=== PATIENT | female | born 1970 | race Caucasian/White ===

== ENCOUNTER 2017-03-19 08:31 | Emergency (ER) | payer BC, SELFPAY ==
--- NOTE | 2017-03-19 09:08 | RAD ---
CHEST PA AND LATERAL: History: 46-year-old female with chest pain. FINDINGS: Heart size is normal. The lungs are clear. IMPRESSION: No acute intrathoracic disease. No pneumonia, edema, or pleural effusion or other acute process. POS: OFF
[2017-03-19 09:09] LABS: #Basophils 0.2 thou/uL (0.0-0.2); #Eosinphils 0.1 thou/uL (0.0-0.7); #Lymphocytes 1.9 thou/uL (1.20-3.40); #Monocytes 0.5 thou/uL (0.11-0.59); %Basophils 2.1 % (0.0-1.0); %Eosinophils 1.2 % (0.0-10.0); %Lymphocytes 24.6 % (21.0-51.0); %Monocytes 7.1 % (0.0-10.0); Hematocrit 43.6 % (36.0-47.0); Mean Platelet Volume 7.1 fL (7.4-10.4); Red Blood Cell (RBC) Count 4.98 mill/uL (4.20-5.40); White Blood Cell (WBC) Count 7.7 thou/uL (4.8-10.8)
[2017-03-19 09:19] LABS: ALT (SGPT) 35 U/L (8-55); AST (SGOT) 24 U/L (5-34); Alkaline Phosphatase 81 U/L (40-150); Anion Gap 14 mmol/L (10-20); BUN (Urea Nitrogen) 15 mg/dL (7.0-18.7); Bilirubin, Total 0.7 mg/dL (0.2-1.2); Calc. Creatinine Clearance 0 mL/min (70-130); Calcium 9.7 mg/dL (7.8-10.44); Carbon Dioxide 20 mmol/L (22-29); Chloride 107 mmol/L (98-107); Estimated GFR-MDRD 45; Globulin 3.3 g/dL (2.4-3.5); Protein, Total 7.4 g/dL (6.0-8.3)
[2017-03-19 09:21] LABS: Troponin I Less than 0.010 ng/mL (< 0.028)
[2017-03-19 09:24] LABS: Lipase 12 U/L (8-78)
[2017-03-19] MEDS ORDERED: Prochlorperazine 10 MG/2 ML VIAL ONE (09:28)
[2017-03-19] MEDS ORDERED: Ketorolac Tromethamine 30 MG/ML VIAL ONE (09:29)
[2017-03-19] MEDS ORDERED: diphenhydrAMINE 50 MG/ML VIAL ONE (09:29)
--- NOTE | 2017-03-19 09:56 | CT ---
CHEST PA AND LATERAL: History: 47-year-old female with headache. History of migraine headaches. Comparison: 01-07-02 FINDINGS: Post-operative craniotomy changes noted over the right parasagittal frontal region with removal of t he previously noted extraaxial mass which is present on the 02 examination. No focal mass or midline shift. No intra or extraaxial hemorrhage. Sinuses demonstrate a small area of mucosal thickening in the right ethmoid sinus. The mastoids are clear. The previously noted extraaxial mass on the prior CT appears to have been totally resected. No residual mass. IMPRESSION: Post-operative right craniotomy. No mass or bleed or other acute process. POS: OFF
--- NOTE | 2017-05-10 11:38 | EKG ---
Test Reason : CHEST PAIN Blood Pressure : / mmHG Vent. Rate : 093 BPM Atrial Rate : 093 BPM P-R Int : 148 ms QRS Dur : 072 ms QT Int : 324 ms P-R-T Axes : 045 021 052 degrees QTc Int : 402 ms Normal sinus rhythm Normal ECG Confirmed by BETO TAYLOR D.O. ([id number]), assistant film editor LENNIE BARRIOS ([id number]) on 05/10/2017 11:38:05 AM Referred By: BRANDON Confirmed By:BETO TAYLOR D.O.
== END 2017-03-19 10:30 | disposition home or self-care (01) ==
LOC: SCSER 08:31
DX: G43.909 Migraine, unspecified, not intractable, without status migrainosus (principal); R07.89 Other chest pain
CPT/HCPCS: 70450; 71020; 80053; 82553; 83690; 83880; 84484; 85025; 93005; 96361; 96374; 96375; J0780; J1200; J1885

== ENCOUNTER 2018-02-09 12:54 | Outpatient (CLI) | payer OTHER | END 2018-02-09 12:55 | disposition home or self-care (01) | LOC: BICMAMMO 12:54 | PROVIDERS: ATTEND Nurse Practitioner Family | DX: Z12.31 Encounter for screening mammogram for malignant neoplasm of breast (principal); Z80.3 Family history of malignant neoplasm of breast | CPT/HCPCS: 77063; 77067 ==

== ENCOUNTER 2019-02-16 11:29 | Outpatient (CLI) | payer MEDICARE, OTHER ==
--- NOTE | 2019-02-16 14:06 | MMO ---
Bilateral MAMMO Bilat Screen [facility]. CLINICAL HISTORY: Patient is 48 years old and is seen for screening. The patient has no personal history of cancer. VIEWS: The views performed were: bilateral craniocaudal with tomosynthesis and bilateral mediolateral oblique with tomosynthesis. FILMS COMPARED: The present examination has been compared to a prior imaging study performed at [facility] on 02/09/2018. This study has been interpreted with the assistance of computer-aided detection. MAMMOGRAM FINDINGS: There are scattered fibroglandular densities. There is a stable intramammary lymph node seen in the outer region of the right breast. There are no suspicious masses, suspicious calcifications, or new areas of architectural distortion. IMPRESSION: THERE IS NO MAMMOGRAPHIC EVIDENCE OF MALIGNANCY. A ROUTINE FOLLOW-UP MAMMOGRAM IN 1 YEAR IS RECOMMENDED. THE RESULTS OF THIS EXAM WERE SENT TO THE PATIENT. ACR BI-RADS Category 2 - Benign finding MAMMOGRAPHY NOTE: 1. A negative mammogram report should not delay a biopsy if a dominant of clinically suspicious mass is present. 2. Approximately 10% to 15% of breast cancers are not detected by mammography. 3. Adenosis and dense breasts may obscure an underlying neoplasm. Reported by: FAB DAVE MD Electonically Signed: [id number]
== END 2019-02-16 11:30 | disposition home or self-care (01) ==
LOC: BICMAMMO 11:29
PROVIDERS: ATTEND Family Medicine
DX: Z12.31 Encounter for screening mammogram for malignant neoplasm of breast (principal)
CPT/HCPCS: 77063; 77067

== ENCOUNTER 2020-05-10 10:12 | Outpatient (CLI) | payer MEDICARE ==
--- NOTE | 2020-05-10 11:34 | MMO ---
Bilateral MAMMO Bilat Screen [facility]. CLINICAL HISTORY: Patient is 49 years old and is seen for screening. The patient has no personal history of cancer. VIEWS: The views performed were: bilateral craniocaudal with tomosynthesis and bilateral mediolateral oblique with tomosynthesis. FILMS COMPARED: The present examination has been compared to prior imaging studies performed at [facility] on 02/09/2018 and 02/16/2019. This study has been interpreted with the assistance of computer-aided detection. MAMMOGRAM FINDINGS: There are scattered fibroglandular densities. Finding 1: There are stable benign appearing calcifications seen in both breasts. Finding 2: There are new calcifications with grouped or clustered distribution seen in the left breast at 3 o'clock. IMPRESSION: FINDING 1: STABLE BENIGN APPEARING CALCIFICATIONS IN BOTH BREASTS ARE BENIGN. FINDING 2: NEW CALCIFICATIONS IN THE LEFT BREAST REQUIRE ADDITIONAL EVALUATION. ADDITIONAL PROJECTIONS (LEFT CRANIOCAUDAL SPOT COMPRESSION MAGNIFICATION; LEFT MEDIOLATERAL OBLIQUE SPOT COMPRESSION MAGNIFICATION; LEFT MEDIOLATERAL; AND LEFT MEDIOLATERAL SPOT COMPRESSION MAGNIFICATION) ARE RECOMMENDED. THE RESULTS OF THIS EXAM WERE SENT TO THE PATIENT. ACR BI-RADS Category 0 - Incomplete: Need additional imaging evaluation. [facility] will notify the patient of the need for additional imaging services. MAMMOGRAPHY NOTE: 1. A negative mammogram report should not delay a biopsy if a dominant of clinically suspicious mass is present. 2. Approximately 10% to 15% of breast cancers are not detected by mammography. 3. Adenosis and dense breasts may obscure an underlying neoplasm. Reported by: ESTEVAN FRASER MD Electonically Signed: [id number]
--- NOTE | 2020-05-10 12:20 | BD ---
DEXA BONE DENSITY STUDY: Date: 05/10/2020 HISTORY: Postmenopausal. FINDINGS: Lumbar Spine: BMD (g/cm2) L1 1.118 T-Score: +1.2 L2 1.101 T-Score: +0.7 L3 1.072 T-Score: -0.1 L4 0.980 T-Score: -0.7 Total 1.063 T-Score: +0.1 Right Femoral Neck: 0.845 T-Score: +0.0 Total Femur: 0.895 T-Score: -0.4 IMPRESSION: Normal bone mineral density of the lumbar spine and right femoral neck. POS: DEVON
== END 2020-05-10 10:13 | disposition home or self-care (01) ==
LOC: BICMAMMO 10:12
PROVIDERS: ATTEND Family Medicine
DX: Z12.31 Encounter for screening mammogram for malignant neoplasm of breast (principal); Z13.820 Encounter for screening for osteoporosis; N95.9 Unspecified menopausal and perimenopausal disorder; R92.1 Mammographic calcification found on diagnostic imaging of breast
CPT/HCPCS: 77063; 77067; 77080

== ENCOUNTER 2020-05-17 09:48 | Outpatient (CLI) | payer MEDICARE ==
--- NOTE | 2020-05-17 10:18 | MMO ---
Left Breast MAMMO Unilat Diag [facility]. CLINICAL HISTORY: Patient is 49 years old and is seen for diagnostic exam. The patient has no personal history of cancer. The patient has a history of bilateral Breast reduction in 1999. VIEWS: The views performed were: left craniocaudal spot compression magnification; left mediolateral oblique spot compression magnification; left mediolateral spot compression magnification; and left mediolateral with tomosynthesis. FILMS COMPARED: The present examination has been compared to prior imaging studies performed at [facility] on 02/09/2018, 02/16/2019 and 05/10/2020. This study has been interpreted with the assistance of computer-aided detection. MAMMOGRAM FINDINGS: There are scattered fibroglandular densities. There are new benign appearing and punctate calcifications with grouped or clustered distribution seen in the upper-outer region of the left breast. There are no suspicious masses, suspicious calcifications, or new areas of architectural distortion. IMPRESSION: THERE IS NO MAMMOGRAPHIC EVIDENCE OF MALIGNANCY. A ROUTINE FOLLOW-UP MAMMOGRAM IN 1 YEAR IS RECOMMENDED. THE RESULTS OF THIS EXAM WERE SENT TO THE PATIENT. ACR BI-RADS Category 2 - Benign finding MAMMOGRAPHY NOTE: 1. A negative mammogram report should not delay a biopsy if a dominant of clinically suspicious mass is present. 2. Approximately 10% to 15% of breast cancers are not detected by mammography. 3. Adenosis and dense breasts may obscure an underlying neoplasm. Reported by: ESTEVAN FRASER MD Electonically Signed: [id number]
== END 2020-05-17 09:49 | disposition home or self-care (01) ==
LOC: BICMAMMO 09:48
PROVIDERS: ATTEND Family Medicine
DX: R92.1 Mammographic calcification found on diagnostic imaging of breast (principal)
CPT/HCPCS: 77065; G0279

== ENCOUNTER 2021-07-26 10:34 | Outpatient (CLI) | payer MEDICARE | END 2021-07-26 10:35 | disposition home or self-care (01) | LOC: BICMAMMO 10:34 | PROVIDERS: ATTEND Family Medicine | DX: Z12.31 Encounter for screening mammogram for malignant neoplasm of breast (principal); Z13.820 Encounter for screening for osteoporosis; Z80.3 Family history of malignant neoplasm of breast; Z98.890 Other specified postprocedural states | CPT/HCPCS: 77063; 77067; 77080 ==